=== PATIENT | female | born 1950 | race Two or more races ===

== ENCOUNTER → 2018-03-31 | Day surgery (SDC) | payer OTHER ==
[~2018-03-31] MED LIST: BUPROPION HCL100 M1 PO; CLONAZEPAM1 MG PO; LISINOPRIL2.5 MG PO; NEURONTIN300 MG PO; PAXIL40 MG PO; PLETAL PO; RESTORIL30 MG PO; RISPERDAL0.25 MG PO
== END | disposition home or self-care (01) ==
LOC: AMB-ENDOS 08:52
DX: K57.32 Diverticulitis of large intestine without perforation or abscess without bleeding (principal); K64.1 Second degree hemorrhoids